=== PATIENT | female | born 1960 | race Caucasian/White ===

== ENCOUNTER 2023-10-26 11:26 | Outpatient (CLI) | payer BC | END 2023-10-26 11:27 | disposition home or self-care (01) | LOC: NAV RAD 11:26 | PROVIDERS: ATTEND Nurse Practitioner Family | DX: M54.2 Cervicalgia (principal); M54.6 Pain in thoracic spine; M47.812 Spondylosis without myelopathy or radiculopathy, cervical region; M47.814 Spondylosis without myelopathy or radiculopathy, thoracic region; M48.8X2 Other specified spondylopathies, cervical region | CPT/HCPCS: 72040; 72072 ==

== ENCOUNTER 2023-12-06 10:56 | Outpatient (CLI) | payer BC | END 2023-12-06 10:57 | disposition home or self-care (01) | LOC: NAV CT 10:56 | PROVIDERS: ATTEND Nurse Practitioner Family | DX: M51.34 Other intervertebral disc degeneration, thoracic region (principal); M47.812 Spondylosis without myelopathy or radiculopathy, cervical region; E27.8 Other specified disorders of adrenal gland; M40.50 Lordosis, unspecified, site unspecified; M48.02 Spinal stenosis, cervical region; M48.03 Spinal stenosis, cervicothoracic region | CPT/HCPCS: 72125; 72128 ==